=== PATIENT | female | born 1970 | race Caucasian/White ===

== ENCOUNTER 2016-09-28 12:45 | Emergency (ER) | payer BC ==
[~2016-09-28] VITALS: Ht 165.1 cm; Wt 127.3 kg
[2016-09-28 12:47] VITALS: TEMP 98.2
[2016-09-28] MEDS ORDERED: PRILOSEC 20MG20 MG PO (12:51)
[2016-09-28] MEDS ORDERED: NOVOLOG MIX 70/33 ML SQ (12:52)
[2016-09-28] MEDS ORDERED: DOXYCYCLINE 10100 MG (12:52)
[2016-09-28] MEDS ORDERED: PREDNISONE1 MG (12:53)
[2016-09-28 13:41] LABS: HEMATOCRIT 39.3 % (37.0-47.0); HEMOGLOBIN 13.1 g/dl (12.5-16.0); MEAN CELL VOLUME 81 fl (80.0-100.0); MEAN CORPUSCULAR HEMOGLOBIN 27 pg (27.0-31.0); MEAN CORPUSCULAR HGB CONC 33 g/dl (33.0-37.0); PLATELET COUNT 265 K/mm3 (130-400); RED BLOOD COUNT 4.85 M/mm3 (4.10-5.30); REDCELL DISTRIBUTION WIDTH-CV 13.8 % (11.5-14.5); WHITE BLOOD COUNT 10.8 K/mm3 (4.8-10.8)
[2016-09-28 13:43] LABS: ADJUSTED CALCIUM 9.3 mg/dL (8.4-10.2); ALBUMIN 4.2 gm/dL (3.5-5.0); BILIRUBIN,TOTAL 0.6 mg/dL (0.0-1.0); CALCIUM 9.5 mg/dL (8.4-10.2); CREATININE, serum 0.87 mg/dL (0.52-1.25); POTASSIUM 3.9 mmol/L (3.4-5.0); TOTAL PROTEIN 7.5 gm/dL (6.4-8.2)
[2016-09-28 13:44] LABS: ADD PATHOLOGY DIFF REVIEW NO
[2016-09-28 14:14] LABS: BAND 4 % (0-10); EOSINOPHIL 2 % (0-4); NEUTROPHILS 79 % (42.0-75.2); TOTAL CELLS COUNTED 100
[2016-09-28 14:15] LABS: PLATELET ESTIMATE NORMAL (NORMAL)
[2016-09-28] MEDS ORDERED: PREDNISONE20 MG PO (14:46)
[2016-09-28 15:05] VITALS: BP 134/71; PULSE 96
== END 2016-09-28 15:07 | disposition home or self-care (01) ==
LOC: COL.ER 12:45
PROVIDERS: Emergency Medicine
DX: J45.901 Unspecified asthma with (acute) exacerbation (principal); E11.65 Type 2 diabetes mellitus with hyperglycemia; Z79.4 Long term (current) use of insulin; I10 Essential (primary) hypertension
CPT/HCPCS: J1815; J7030; J7512

== ENCOUNTER → 2016-12-08 | Outpatient (CLI) | payer BC ==
[~2016-12-08] MED LIST: DOXYCYCLINE 10100 MG; NOVOLOG MIX 70/33 ML SQ; PREDNISONE1 MG; PREDNISONE20 MG PO; PRILOSEC 20MG20 MG PO
== END ==
LOC: COL.PUL 11:20
DX: J45.901 Unspecified asthma with (acute) exacerbation (principal); Z87.891 Personal history of nicotine dependence

== ENCOUNTER 2017-09-07 11:31 | Emergency (ER) | payer BC ==
[~2017-09-07] VITALS: Ht 165.1 cm; Wt 131.8 kg
[2017-09-07 11:35] VITALS: TEMP 97.9
[2017-09-07] MEDS ORDERED: CELEXA10 MG PO (12:00)
[2017-09-07] MEDS ORDERED: PROAIR HFA0.09 MG/AC IH (12:01)
[2017-09-07 12:15] LABS: BASO % 0.3 % (0.0-2.0); EOS # 0.2 (0.0-0.7); GRAN # 6.2 (1.4-6.5); GRAN % 66.1 % (42.2-75.2); HEMOGLOBIN 12.4 g/dl (12.5-16.0); LYMPH # 2.3 (1.2-3.4); LYMPH % 25.2 % (20.0-51.0); MEAN CELL VOLUME 80 fl (80.0-100.0); MEAN CORPUSCULAR HEMOGLOBIN 27 pg (27.0-31.0); MEAN CORPUSCULAR HGB CONC 34 g/dl (33.0-37.0); MEAN PLATELET VOLUME 11.2 fl (7.4-10.4); MONO # 0.5 (0.1-0.6); MONO % 5.4 % (1.7-9.3); PLATELET COUNT 217 K/mm3 (130-400); RED BLOOD COUNT 4.65 M/mm3 (4.10-5.30); REDCELL DISTRIBUTION WIDTH-CV 14.3 % (11.5-14.5)
[2017-09-07 12:29] LABS: ALANINE AMINOTRANSFERASE 34 U/L (9-52); ALBUMIN 3.5 gm/dL (3.5-5.0); ALKALINE PHOSPHATASE 120 U/L (50-136); ANION GAP 9 mmol/L (7-16); AST,SGOT 32 U/L (15-37); BILIRUBIN,TOTAL 0.2 mg/dL (0.0-1.0); BLOOD UREA NITROGEN 13 mg/dL (7-17); C-REACTIVE PROTEIN 4.9 mg/dL (0.0-0.9); CALCIUM 8.6 mg/dL (8.4-10.2); CARBON DIOXIDE 28 mmol/L (22-30); CHLORIDE 100 mmol/L (98-107); GLUCOSE 104 mg/dL (74-106); LIPASE 54 U/L (23-300); POTASSIUM 3.9 mmol/L (3.4-5.0); SODIUM 137 mmol/L (137-145); TOTAL PROTEIN 6.9 gm/dL (6.4-8.2)
[2017-09-07 12:42] LABS: TROPONIN-I < 0.012 ng/mL (0.000-0.034)
[2017-09-07 14:30] VITALS: BP 116/68; PULSE 68
== END 2017-09-07 14:31 | disposition home or self-care (01) ==
LOC: COL.ER 11:31
PROVIDERS: Emergency Medicine
DX: R07.89 Other chest pain (principal); J45.909 Unspecified asthma, uncomplicated; E11.9 Type 2 diabetes mellitus without complications; R00.0 Tachycardia, unspecified; R00.2 Palpitations; Z79.4 Long term (current) use of insulin

== ENCOUNTER 2018-01-25 20:09 | Emergency (ER) | payer BC ==
[~2018-01-25] VITALS: Ht 167.6 cm; Wt 135.0 kg
[~2018-01-25 20:09] MED LIST changes: +CELEXA10 MG PO; +PROAIR HFA0.09 MG/AC IH
[2018-01-25 20:11] VITALS: TEMP 98.7
[2018-01-25 20:52] LABS: BASO % 0.2 % (0.0-2.0); EOS % 0.3 % (0-4.0); GRAN % 82.4 % (42.2-75.2); HEMATOCRIT 38.5 % (37.0-47.0); HEMOGLOBIN 12.5 g/dl (12.5-16.0); LYMPH # 1.7 (1.2-3.4); LYMPH % 13.9 % (20.0-51.0); MEAN CELL VOLUME 80 fl (80.0-100.0); MEAN CORPUSCULAR HEMOGLOBIN 26 pg (27.0-31.0); MEAN CORPUSCULAR HGB CONC 33 g/dl (33.0-37.0); MEAN PLATELET VOLUME 11.9 fl (7.4-10.4); MONO # 0.3 (0.1-0.6); MONO % 2.1 % (1.7-9.3); PLATELET COUNT 280 K/mm3 (130-400); RED BLOOD COUNT 4.81 M/mm3 (4.10-5.30); REDCELL DISTRIBUTION WIDTH-CV 14.6 % (11.5-14.5)
[2018-01-25 20:56] LABS: ALBUMIN 3.9 gm/dL (3.5-5.0); BILIRUBIN,TOTAL 0.4 mg/dL (0.0-1.0); CALCIUM 9.1 mg/dL (8.4-10.2); POTASSIUM 4.5 mmol/L (3.4-5.0); TOTAL PROTEIN 7.2 gm/dL (6.4-8.2)
[2018-01-25 22:47] VITALS: BP 118/63; PULSE 102
== END 2018-01-25 22:47 | disposition home or self-care (01) ==
LOC: COL.ER 20:09
PROVIDERS: Family Medicine
DX: J40 Bronchitis, not specified as acute or chronic (principal); E11.9 Type 2 diabetes mellitus without complications; Z79.4 Long term (current) use of insulin
CPT/HCPCS: J0171; J1815; J2930

== ENCOUNTER → 2018-06-06 | Outpatient (CLI) | payer BC ==
[~2018-06-06] VITALS: Ht 167.6 cm; Wt 134.7 kg
[~2018-06-06] MED LIST changes: +ADDERALL XR 10M10 MG PO; +GLUCOTROL10 MG PO; +LIPITOR 40MG TA40 MG PO; +PRIL40 PO; -PRILOSEC 20MG20 MG PO; +ZOVIRAX400 MG PO
[2018-06-06 08:15] VITALS: BP 120/76; PULSE 80
== END ==
LOC: LIGHT 05-16 07:52
DX: E11.65 Type 2 diabetes mellitus with hyperglycemia (principal); G47.33 Obstructive sleep apnea (adult) (pediatric); E88.81 Metabolic syndrome and other insulin resistance; E66.01 Morbid (severe) obesity due to excess calories; Z68.42 Body mass index [BMI] 45.0-49.9, adult; Z71.3 Dietary counseling and surveillance
CPT/HCPCS: G0463

== ENCOUNTER → 2018-06-18 | Outpatient (CLI) | payer BC | LOC: LIGHT 15:57 | DX: E11.65 Type 2 diabetes mellitus with hyperglycemia (principal); G47.33 Obstructive sleep apnea (adult) (pediatric); E66.01 Morbid (severe) obesity due to excess calories; Z68.42 Body mass index [BMI] 45.0-49.9, adult; Z71.3 Dietary counseling and surveillance ==

== ENCOUNTER → 2018-07-01 | Outpatient (CLI) | payer BC | LOC: LIGHT 13:17 | DX: E11.65 Type 2 diabetes mellitus with hyperglycemia (principal); G47.33 Obstructive sleep apnea (adult) (pediatric); E88.81 Metabolic syndrome and other insulin resistance; E66.01 Morbid (severe) obesity due to excess calories; Z68.42 Body mass index [BMI] 45.0-49.9, adult; Z71.3 Dietary counseling and surveillance ==

== ENCOUNTER 2018-07-09 18:02 | Emergency (ER) | payer BC ==
[~2018-07-09] VITALS: Ht 165.1 cm; Wt 136.5 kg
[2018-07-09 18:07] VITALS: TEMP 98.3
[2018-07-09 18:48] LABS: BASO % 0.3 % (0.0-2.0); EOS # 0.2 (0.0-0.7); EOS % 2.4 % (0-4.0); GRAN # 6.4 (1.4-6.5); HEMATOCRIT 40.8 % (37.0-47.0); HEMOGLOBIN 13.1 g/dl (12.5-16.0); LYMPH # 2.9 (1.2-3.4); LYMPH % 29.1 % (20.0-51.0); MEAN CELL VOLUME 77 fl (80.0-100.0); MEAN CORPUSCULAR HEMOGLOBIN 25 pg (27.0-31.0); MEAN CORPUSCULAR HGB CONC 32 g/dl (33.0-37.0); MEAN PLATELET VOLUME 11.2 fl (7.4-10.4); MONO # 0.5 (0.1-0.6); MONO % 4.7 % (1.7-9.3); PLATELET COUNT 246 K/mm3 (130-400); RED BLOOD COUNT 5.28 M/mm3 (4.10-5.30); REDCELL DISTRIBUTION WIDTH-CV 14.6 % (11.5-14.5)
[2018-07-09 18:51] LABS: PROTHROMBIN TIME 11.4 SECONDS (9.7-12.8)
[2018-07-09 19:02] LABS: D-DIMER < 200.00 ng/mLDDu (200-230)
[2018-07-09 19:14] LABS: ALANINE AMINOTRANSFERASE 28 U/L (9-52); ALBUMIN 4.2 gm/dL (3.5-5.0); ALKALINE PHOSPHATASE 170 U/L (50-136); ANION GAP 10 mmol/L (7-16); AST,SGOT 35 U/L (15-37); BILIRUBIN,TOTAL 0.3 mg/dL (0.0-1.0); BLOOD UREA NITROGEN 13 mg/dL (7-17); CALCIUM 9.5 mg/dL (8.4-10.2); CARBON DIOXIDE 25 mmol/L (22-30); CHLORIDE 99 mmol/L (98-107); CREATININE, serum 0.84 mg/dL (0.52-1.25); GLUCOSE 223 mg/dL (74-106); LIPASE 66 U/L (23-300); POTASSIUM 4.3 mmol/L (3.4-5.0); SODIUM 134 mmol/L (137-145); TOTAL PROTEIN 7.5 gm/dL (6.4-8.2)
[2018-07-09 19:32] LABS: TROPONIN-I < 0.012 ng/mL (0.000-0.035)
[2018-07-09 20:05] VITALS: BP 116/58; PULSE 88
== END 2018-07-09 20:15 | disposition home or self-care (01) ==
LOC: COL.ER 18:02
PROVIDERS: Emergency Medicine
DX: R07.89 Other chest pain (principal); E11.9 Type 2 diabetes mellitus without complications; Z90.710 Acquired absence of both cervix and uterus; Z79.4 Long term (current) use of insulin
CPT/HCPCS: J1885; J7030

== ENCOUNTER → 2018-07-11 | Outpatient (CLI) | payer BC ==
[~2018-07-11] VITALS: Ht 165.1 cm; Wt 136.5 kg
[2018-07-11 15:33] VITALS: BP 136/72; PULSE 64
== END ==
LOC: LIGHT 15:26
DX: E11.65 Type 2 diabetes mellitus with hyperglycemia (principal); G47.33 Obstructive sleep apnea (adult) (pediatric); E88.81 Metabolic syndrome and other insulin resistance; E66.01 Morbid (severe) obesity due to excess calories; Z68.43 Body mass index [BMI] 50.0-59.9, adult; Z71.3 Dietary counseling and surveillance
CPT/HCPCS: G0463

== ENCOUNTER → 2018-08-15 | Outpatient (CLI) | payer BC ==
[~2018-08-15] VITALS: Ht 165.1 cm; Wt 136.5 kg
[2018-08-15 16:48] VITALS: BP 120/70; PULSE 76
== END ==
LOC: LIGHT 16:05
DX: E11.65 Type 2 diabetes mellitus with hyperglycemia (principal); G47.33 Obstructive sleep apnea (adult) (pediatric); E88.81 Metabolic syndrome and other insulin resistance; E66.01 Morbid (severe) obesity due to excess calories; Z68.42 Body mass index [BMI] 45.0-49.9, adult; Z71.3 Dietary counseling and surveillance
CPT/HCPCS: G0463

== ENCOUNTER → 2018-09-12 | Outpatient (CLI) | payer BC ==
[~2018-09-12] VITALS: Ht 165.1 cm; Wt 136.5 kg
[~2018-09-12] MED LIST changes: +HUMALOG100 U/ML SQ; -NOVOLOG MIX 70/33 ML SQ; +TRESIBA FL100 UNIT/1 SQ
[2018-09-12 15:20] VITALS: BP 116/80; PULSE 92
== END ==
LOC: LIGHT 14:35
DX: E11.65 Type 2 diabetes mellitus with hyperglycemia (principal); G47.33 Obstructive sleep apnea (adult) (pediatric); E88.81 Metabolic syndrome and other insulin resistance; E66.01 Morbid (severe) obesity due to excess calories; Z68.42 Body mass index [BMI] 45.0-49.9, adult; Z71.3 Dietary counseling and surveillance
CPT/HCPCS: G0463

== ENCOUNTER → 2018-09-19 | Outpatient (CLI) | payer BC | LOC: BHSO 08:46 | DX: Z01.818 Encounter for other preprocedural examination (principal); E66.01 Morbid (severe) obesity due to excess calories ==

== ENCOUNTER → 2018-10-14 | Outpatient (CLI) | payer BC ==
[~2018-10-14] VITALS: Ht 165.1 cm; Wt 134.7 kg
[2018-10-14 16:50] VITALS: BP 120/76; PULSE 72
== END ==
LOC: LIGHT 15:13
DX: E11.65 Type 2 diabetes mellitus with hyperglycemia (principal); G47.33 Obstructive sleep apnea (adult) (pediatric); E88.81 Metabolic syndrome and other insulin resistance; E66.01 Morbid (severe) obesity due to excess calories; Z68.42 Body mass index [BMI] 45.0-49.9, adult; Z71.3 Dietary counseling and surveillance
CPT/HCPCS: G0463

== ENCOUNTER → 2018-11-14 | Outpatient (CLI) | payer BC ==
[~2018-11-14] VITALS: Ht 165.1 cm; Wt 132.4 kg
[2018-11-14 17:09] VITALS: BP 116/70; PULSE 64
== END ==
LOC: LIGHT 16:38
DX: E11.65 Type 2 diabetes mellitus with hyperglycemia (principal); G47.33 Obstructive sleep apnea (adult) (pediatric); E88.81 Metabolic syndrome and other insulin resistance; E66.01 Morbid (severe) obesity due to excess calories; Z68.42 Body mass index [BMI] 45.0-49.9, adult; Z71.3 Dietary counseling and surveillance
CPT/HCPCS: G0463

== ENCOUNTER 2018-12-04 11:06 | Inpatient (IN) | payer BC ==
[~2018-12-04] VITALS: Ht 166.4 cm; Wt 127.8 kg
[2019-01-01] VITALS (310 sets, daily range): BP systolic 122–140; BP diastolic 58–72; PULSE 70–85; TEMP 98–98.9; O2SAT 94–99
--- NOTE | 2019-01-01 06:30 | NUR ---
The patient ambulated back to [facility] [facility] independently using a steady gait and appeared to tolerate the activity well. Vital signs obtained. Consent signed. 20G IV started in right forearm on second attempt, NS infusing without difficulty. Pre op medications administered as ordered. Blood sugar checked with a result of 188. Call light is within reach. Family brought back to be at her bedside. The patient denies any further needs at this time. Will continue to monitor the patient.
[2019-01-01] MEDS ORDERED: ADDERALL XR15 MG PO (06:42)
[2019-01-01] MEDS ORDERED: NOVOLOG FLEX100 U/ML SQ (06:42)
--- NOTE | 2019-01-01 12:00 | NUR ---
Pt arrived to ICU bed 6 from PACU via bed. Report received from Lai Cain. Pt resting in bed, easily arousable. c/o abd pain. bandaids x5 on abdomen c/d/i. ELTON drain on left side of abdomen with blood drainage. Patterson in place with clear, yellow urine. Pt A/Ox4, moves all extrem, weak. HR SR on monitor. on 2L/NC. Lungs clear, diminished in bases. Discussed plan of care with pt and pt's family at bedside r/t NPO status, post op checks, patterson and medications. Pt verbalized understanding. Call light in reach.
--- NOTE | 2019-01-01 13:30 | NUR ---
PHYSICIAN LOCUMS URGENT CARE dilaudid initiated. Discussed PHYSICIAN LOCUMS URGENT C[facility] with pt and pt's family. Pt verbalized understanding. PHYSICIAN [facility]MS [facility] button with pt and call light in reach.
--- NOTE | 2019-01-01 15:45 | NUR ---
Pt upset, family stepped out of room while she was sleeping. She felt anxious and didn't know the call light was laying on the left side of the bed. Pt's family back in room with her. Emotional support given. Pt states she feels better now family is in room with her. Swabs given to moisten her mouth. Pt states OPEN TENTER OPERATOR dilaudid is helping her abd pain. Pillow on abd to help splint when she moves. Call light moved to another spot so pt can see it better. OPEN TENTER OPERATOR button within reach.
--- NOTE | 2019-01-01 18:00 | NUR ---
Pt OOB to chair x2 assist. Pt unsteady on feet. Gait belt used. Pt sitting up in chair. States she likes the chair better than the bed. Pt tolerated activity well. VSS. Pt's family in room with her. Call light and MANAGER PROJECT button within reach.
--- NOTE | 2019-01-01 19:05 | NUR ---
Bedside report given to JASON Proctor. Pt remains in chair. Family in room.
--- NOTE | 2019-01-01 19:40 | NUR ---
Patient assessment completed and charted at this time, please see documentation for details. Patient resting in chair, at bedside. Will continue to monitor.
[2019-01-02] VITALS (248 sets, daily range): BP systolic 97–152; BP diastolic 62–79; PULSE 58–75; TEMP 97.8–98.7; O2SAT 93–100
[2019-01-02 05:20] LABS: BASO % 0.2 % (0.0-2.0); EOS % 0.1 % (0-4.0); GRAN # 9.6 (1.4-6.5); GRAN % 79.7 % (42.2-75.2); HEMOGLOBIN 11.6 g/dl (12.5-16.0); LYMPH # 1.7 (1.2-3.4); LYMPH % 13.9 % (20.0-51.0); MEAN CELL VOLUME 80 fl (80.0-100.0); MEAN CORPUSCULAR HEMOGLOBIN 25 pg (27.0-31.0); MEAN CORPUSCULAR HGB CONC 32 g/dl (33.0-37.0); MEAN PLATELET VOLUME 11.7 fl (7.4-10.4); MONO # 0.7 (0.1-0.6); MONO % 5.8 % (1.7-9.3); PLATELET COUNT 240 K/mm3 (130-400); RED BLOOD COUNT 4.56 M/mm3 (4.10-5.30); REDCELL DISTRIBUTION WIDTH-CV 15.2 % (11.5-14.5)
[2019-01-02 05:21] LABS: HEMATOCRIT 36.5 % (37.0-47.0)
[2019-01-02 05:29] LABS: CALCIUM 8.6 mg/dL (8.4-10.2); CREATININE, serum 0.9 (0.52-1.25); POTASSIUM 4.2 mmol/L (3.4-5.0)
--- NOTE | 2019-01-02 07:10 | NUR ---
RECEIVED REPORT FROM JASON HARDEN.
--- NOTE | 2019-01-02 10:04 | NUR ---
SW met with the patient to discuss a discharge plan. The pt lives in [place] with her , Reymundo, their son and pt's [id number]. The pt has a Bi-PAP and receives her supplies from [email or web address]. The pt's PCP is Dr. Shawna Cowart and pt receives her medications from [facility] with no difficulties. The pt does not have advanced directives in the EMR and was not interested in obtaining a DPOA-HC form. The pt plans to return home upon discharge with Reymundo providing transportation. SW will continue to follow and assist with any discharge recommendations.
--- NOTE | 2019-01-02 19:45 | NUR ---
Pt. sitting up in bed with family at bedside. Pt. is A&OX3, assessment complete. INT to rt. hand patent. Pt. reports pain at a 7 on pain scale, will give pain meds per orders. Abd. lap sites X5 noted CDI with bandaids. ELTON noted serosangenous drainage noted. Pt. denies further needs, call light within reach.
[2019-01-03] VITALS (8 sets, daily range): BP systolic 125–151; BP diastolic 67–90; PULSE 73–98; TEMP 97.9–98.6
--- NOTE | 2019-01-03 09:00 | NUR ---
Patient alert and oriented, answers questions appropriately. See assessment. Abdomen soft, non distended. Bowel sounds active x4 quads. No flatus. C/o gas pains. Lap sites with edges well approximated, no drainage or redness noted. ELTON drain to bulb compression in place, small amount of serosanguinous drainage noted. C/o gas/abdomen pain /. No other c/o at this time.
--- NOTE | 2019-01-03 20:20 | NUR ---
Patient assessed at this time. Alert and oriented x 4, and able to make needs known. Complained of pain to abdomen. Given PRN [place] as requested. Also complained of nauses, and given PRN Zofran. IV site to right hand flushed. Site without redness, warmth, and swelling. Denies SOB, dyspnea, and cough. LS CTA. Respirations even and unlabored. HRR. Denies chest pain. Capillary refill < 3 seconds. Non-tenting skin turgor. BSAx4. 5 lab sites to abdomen CDI. ELTON drain to left abdomen CDI. Serousangenous drainage. 1+ edema BLE. Has been following full liquid diet, and tolerating well, except for the nausea. Has not had any emesis. Voices no questions, needs, or concerns at this time. In bed watching TV. at bedside. Call light is within reach.
--- NOTE | 2019-01-04 00:31 | NUR ---
Patient complaining of pain and nausea. Given PRN [place] and Zofran per orders. Given ice water as requested. Voices no other questions, needs, or concerns at this time. Resting in bed. CPAP on.
[2019-01-04 04:00] VITALS: BP 113/69; PULSE 75; TEMP 97.9
--- NOTE | 2019-01-04 06:13 | NUR ---
ELTON drain emptied with 30 mls of serousangenous drainage. Was resting in bed with eyes closed when checked on. Wearing CPAP. No complaints of pain, discomfort, or nausea at this time. Resting in bed with call light within reach. Has voiced no questions, needs, or concerns.
--- NOTE | 2019-01-04 08:00 | NUR ---
Patient in bed resting. Alert and oriented x 3. Shift assessment complete. Lap sites x5 with edges well approximated. ELTON to left lower quadrant, serosanguinous drainage present. States relief of pain after medication administration. INT to right hand not flushing well and causes pain, Discontinued INT. Denies further needs at this time.
[2019-01-04 08:21] VITALS: BP 142/77; PULSE 73; TEMP 98
--- NOTE | 2019-01-04 09:40 | NUR ---
Dr. Medeiros in to see patient.
[2019-01-04] MEDS ORDERED: NORCOELIX PO (09:54)
[2019-01-04] MEDS ORDERED: ZOFRAN 4MG T4 MG/TAB PO (09:55)
--- NOTE | 2019-01-04 12:00 | NUR ---
Discharge education provided to patient and spouse. Educated on signs and symptoms of infection. Educated on follow up appointment and when to call provider. All questions answered. Denies pain or further needs at this time. Patient out by wheelchair with surgical staff and spouse
== END 2019-01-04 12:00 | disposition home or self-care (01) | DRG 621 ==
LOC: ICU 01-01 05:34 → INPTSU 01-01 05:34 → SURG 01-01 07:30 → ICU 01-01 11:34 → SURG 01-02 17:09
PROVIDERS: ADMIT Surgery
PROC: 8E0W4CZ Robotic Assisted Procedure of Trunk Region, Percutaneous Endoscopic Approach (ICD-10-PCS; 2019-01-01)
PROC: 0D164ZA Bypass Stomach to Jejunum, Percutaneous Endoscopic Approach (ICD-10-PCS; principal; 2019-01-01 07:30)
DX: E66.01 Morbid (severe) obesity due to excess calories (principal); E11.9 Type 2 diabetes mellitus without complications; K21.9 Gastro-esophageal reflux disease without esophagitis; Z79.4 Long term (current) use of insulin; Z68.42 Body mass index [BMI] 45.0-49.9, adult; E78.1 Pure hyperglyceridemia; G47.33 Obstructive sleep apnea (adult) (pediatric); E88.81 Metabolic syndrome and other insulin resistance; F32.9 Major depressive disorder, single episode, unspecified; F41.9 Anxiety disorder, unspecified; J45.909 Unspecified asthma, uncomplicated
CPT/HCPCS: A4314; C9113; J0690; J1100; J1170; J1650; J1815; J1956; J2405; J2550; J2704; J3010; J7030

== ENCOUNTER → 2018-12-16 | Outpatient (CLI) | payer BC | LOC: LIGHT 08:14 | DX: E11.65 Type 2 diabetes mellitus with hyperglycemia (principal); G47.33 Obstructive sleep apnea (adult) (pediatric); E88.81 Metabolic syndrome and other insulin resistance; E66.01 Morbid (severe) obesity due to excess calories; Z68.42 Body mass index [BMI] 45.0-49.9, adult; Z71.3 Dietary counseling and surveillance ==

== ENCOUNTER → 2019-01-06 | Outpatient (CLI) | payer BC ==
[~2019-01-06] VITALS: Ht 166.4 cm; Wt 125.9 kg
[~2019-01-06] MED LIST changes: +ADDERALL XR15 MG PO; +NORCOELIX PO; +NOVOLOG FLEX100 U/ML SQ; +ZOFRAN 4MG T4 MG/TAB PO
[2019-01-06 15:06] VITALS: BP 112/66; PULSE 80
== END ==
LOC: LIGHT
DX: E11.65 Type 2 diabetes mellitus with hyperglycemia (principal); G47.33 Obstructive sleep apnea (adult) (pediatric); Z98.84 Bariatric surgery status; E66.01 Morbid (severe) obesity due to excess calories; Z68.42 Body mass index [BMI] 45.0-49.9, adult; Z71.3 Dietary counseling and surveillance

== ENCOUNTER → 2019-02-17 | Outpatient (CLI) | payer BC ==
[~2019-02-17] VITALS: Ht 166.4 cm; Wt 115.7 kg
[~2019-02-17] MED LIST changes: +B-121000 MCG CHEW; +CALCIUM CITRAT200 M2 PO; +CENTRUM CHEWAB1 EAC3 PO; +VITAMIN D31000 IU PO
[2019-02-17 16:44] VITALS: BP 102/64; PULSE 68
== END ==
LOC: LIGHT 13:26
DX: E11.9 Type 2 diabetes mellitus without complications (principal); G47.33 Obstructive sleep apnea (adult) (pediatric); Z98.84 Bariatric surgery status; E66.01 Morbid (severe) obesity due to excess calories; Z68.41 Body mass index [BMI] 40.0-44.9, adult; Z71.3 Dietary counseling and surveillance

== ENCOUNTER → 2019-03-31 | Outpatient (CLI) | payer BC ==
[~2019-03-31] VITALS: Ht 166.4 cm; Wt 108.2 kg
[2019-03-31 13:04] VITALS: BP 112/70; PULSE 84
== END ==
LOC: LIGHT 12:57
DX: E11.65 Type 2 diabetes mellitus with hyperglycemia (principal); G47.33 Obstructive sleep apnea (adult) (pediatric); Z98.84 Bariatric surgery status; E66.01 Morbid (severe) obesity due to excess calories; Z68.39 Body mass index [BMI] 39.0-39.9, adult; Z71.3 Dietary counseling and surveillance